=== PATIENT | male | born 1965 | race Two or more races ===

== ENCOUNTER 2018-08-01 14:08 | Emergency (ER) | payer OTHER ==
[~2018-08-01] VITALS: Ht 160 cm; Wt 93.0 kg
[2018-08-01] MEDS ORDERED: ASPirin 81 mg TAB PO ONE (15:00)
[2018-08-01 15:21] LABS: Albumin 4.1 g/dL (3.4-5.0); Anion Gap 4 (5-15); Blood Urea Nitrogen 20 mg/dL (7-18); Calcium 8.7 mg/dL (8.5-10.1); Carbon Dioxide 30 mmol/L (21-32); Chloride 107 mmol/L (98-107); Glucose 119 mg/dL (74-106); Potassium 4.1 mmol/L (3.5-5.1); Sodium 141 mmol/L (136-145)
[2018-08-01 15:25] LABS: Alanine Aminotransferase 63 U/L (16-61); Alkaline Phosphatase 120 U/L (45-117); Aspartate Aminotransferase 33 U/L (15-37); BUN/Creatinine Ratio 19.2; Bilirubin, Total 0.5 mg/dL (0.2-1.0); GFR African American 96 mL/min; GFR Non-African American 80 mL/min; Total Protein 7.4 g/dL (6.4-8.2)
[2018-08-01 15:29] LABS: Basophils # (auto) 0 uL; Basophils % (auto) 0.4 % (0.0-2.0); Eosinophils # (auto) 0.1 uL; Eosinophils % (auto) 0.8 % (0.0-7.0); Hematocrit 45.3 % (41.0-53.0); Hemoglobin 15.4 g/dL (13.5-17.5); Lymphocytes # (auto) 1.8 uL; Lymphocytes % (auto) 22.9 % (10.0-50.0); Mean Corpuscular Hemoglobin 30.6 pg (28.0-32.0); Mean Corpuscular Hgb Conc. 34.1 g/dL (32.0-36.0); Mean Corpuscular Volume 89.7 fL (80.0-100.0); Monocytes # (auto) 0.5 uL; Monocytes % (auto) 6.8 % (0.0-12.0); Neutrophils # (auto) 5.5 uL; Neutrophils % (auto) 69.1 % (37.0-80.0); Platelet Count (auto) 204 10^3/uL (140-450); Red Blood Cells 5.05 10^6/uL (4.5-5.90); Red Cell Distribution Width 15.1 % (11.8-14.3)
[2018-08-01 18:04] VITALS: BP 193/128
[2018-08-01] MEDS ORDERED: cloNIDine HCL 0.1 MG TAB PO ONE (18:15)
== END 2018-08-01 20:16 | disposition left against medical advice (07) ==
LOC: ER 14:11
DX: I24.9 Acute ischemic heart disease, unspecified (principal); E03.9 Hypothyroidism, unspecified; I10 Essential (primary) hypertension
CPT/HCPCS: 36415; 71046; 80053; 84443; 84484; 85025; 93005

== ENCOUNTER 2022-01-24 03:57 | Emergency (ER) | payer BC, OTHER ==
[~2022-01-24] VITALS: Ht 160 cm; Wt 81.0 kg
[2022-01-24 04:30] VITALS: BP 145/91
[2022-01-24 04:46] LABS: Basophils # (auto) 0 10 ^3/uL (0-0.2); Basophils % (auto) 0.6 % (0.0-2.0); Eosinophils # (auto) 0.1 10 ^3/uL (0-0.8); Eosinophils % (auto) 1.4 % (0.0-7.0); Hematocrit 43.3 % (41.0-53.0); Hemoglobin 14.3 g/dL (13.5-17.5); Lymphocytes # (auto) 2.1 10 ^3/uL (0.4-5.4); Lymphocytes % (auto) 27.1 % (10.0-50.0); Mean Corpuscular Hemoglobin 29.3 pg (28.0-32.0); Mean Corpuscular Volume 88.7 fL (80.0-100.0); Monocytes # (auto) 0.6 10 ^3/uL (0-1.3); Monocytes % (auto) 7.1 % (0.0-12.0); Neutrophils % (auto) 63.8 % (37.0-80.0); Red Blood Cells 4.88 10^6/uL (4.5-5.90); Red Cell Distribution Width 14.5 % (11.8-14.3); White Blood Cell 7.8 10^3/uL (4.4-10.8)
[2022-01-24 05:03] LABS: Albumin 3.9 g/dL (3.4-5.0); BUN/Creatinine Ratio 20.2; Calcium 8.3 mg/dL (8.5-10.1); Potassium 3.8 mmol/L (3.5-5.1)
[2022-01-24 05:06] LABS: Bilirubin, Total 0.4 mg/dL (0.2-1.0); Total Protein 6.9 g/dL (6.4-8.2)
[2022-01-24] MEDS ORDERED: TRAM-297 PO (10:51)
[2022-01-24] MEDS ORDERED: traMADol HCL 50 MG TAB PO ONE (11:00)
== END 2022-01-24 11:38 | disposition home or self-care (01) ==
LOC: ER 03:57
DX: R07.89 Other chest pain (principal); E03.9 Hypothyroidism, unspecified; Z90.89 Acquired absence of other organs
CPT/HCPCS: 36415; 71045; 80053; 84484; 85025; 93005

== ENCOUNTER 2023-12-27 15:22 | Emergency (ER) | payer BC ==
[~2023-12-27] VITALS: Ht 167.6 cm; Wt 82.5 kg
[~2023-12-27 15:22] MED LIST: TRAM-297 PO
[2023-12-27 16:41] VITALS: BP 140/90; PULSE 85; RESP 18; O2SAT 97
== END 2023-12-27 17:35 | disposition left against medical advice (07) ==
LOC: ER 15:30
DX: J02.9 Acute pharyngitis, unspecified (principal); Z53.21 Procedure and treatment not carried out due to patient leaving prior to being seen by health care provider

== ENCOUNTER 2025-01-30 06:25 | Emergency (ER) | payer BC ==
[~2025-01-30] VITALS: Ht 160 cm; Wt 81.7 kg
--- NOTE | 2025-01-30 06:51 | ED.PDOC ---
Back pain HPI HPI Comments This is a 59 year old male presenting to the ED with chief complaint of back pain. Patient reports that he has been experiencing left lower back pain with associated radiation down the back of his left leg for the past 2 days. Patient relays that he has history of sciatica and similar pain in the past due to a previous work related injury. Patient notes laying down improves pain, but sitting or moving worsens his pain. Patient denies any dysuria, flank pain, nausea, vomiting, abdominal pain, numbness, or weakness. Chief Complaint: Back Pain Time Seen by MD: 06:49 Primary Care Provider: NONE Reviewed Notes: Nurses Notes, Medications, Allergies Allergies: Coded Allergies: No Known Drug Allergy (Verified Allergy, Unknown, 08/01/18) Home Meds Active Scripts Hydrocodone-Acetaminophen (Hydrocodone Bitartrate/AC 5-325 mg) 1 Tab Tab, 1 TAB PO TID for 10 Days, #30 TAB Prov:DAYANARA KINGSTON MD 01/30/25 Cyclobenzaprine Hcl (Cyclobenzaprine Hcl) 10 Mg Tab, 10 MG PO TID for 30 Days, #90 TAB Prov:DAYANARA KINGSTON MD 01/30/25 Diclofenac Sodium (Diclofenac Sodium Dr) 50 Mg Tab, 50 MG PO TID for 30 Days, #90 TAB Prov:DAYANARA KINGSTON MD 01/30/25 Tramadol Hcl (Ultram) 50 Mg Tab, 1 TAB PO Q6HR, #30 TAB Prov:LIZET VERNON MD 01/24/22 Information Source: Patient Mode of Arrival: Ambulatory Timing: Days Duration: Since onset Location of Back pain: (L) Lower back Radiates to: Posterior: (L) Calf Severity: Moderate Prehospital treatment: None Quality: Sharp Onset: Spontaneous Circumstance: Work Related History of: Chronic Back Pain Modifying Factors: Movement Past Medical History PAST MEDICAL HISTORY: DM, HTN, Thyroid Surgical History: Thyroidectomy Family History Family History: Reviewed,noncontributory to illness, Unknown Social History Smoker: Non-Smoker Alcohol: Denies ETOH Use Drugs: Denies Drug Use Lives In: Home Constitutional: denies: chills, diaphoresis, fatigue, fever, malaise, sweats, weakness, others EENTM: denies: blurred vision, double vision, ear bleeding, ear discharge, ear drainage, ear pain, ear ringing, eye pain, eye redness, hearing loss, mouth pain, mouth swelling, nasal discharge, nose bleeding, nose congestion, nose silvina n, photophobia, tearing, throat pain, throat swelling, voice changes, others Respiratory: denies: cough, hemoptysis, orthopnea, SOB at rest, shortness of breath, SOB with excertion, stridor, wheezing, others Cardiovascular: denies: chest pain, dizzy spells, diaphoresis, Dyspnea on exertion, edema, irregular heart beat, left arm pain, lightheadedness, palpitations, PND, syncope, others Gastrointestinal: denies: abdomen distended, abdominal pain, blood streaked bowels, constipated, diarrhea, dysphagia, difficulty swallowing, hematemesis, melena, nausea, poor appetite, poor fluid intake, rectal bleeding, rectal pain, vomiting, others Genitourinary: denies: burning, dysuria, flank pain, frequency, hematuria, incontinence, penile discharge, penile sore, pain, testicle pain, testicle swelling, urgency, others Neurological: denies: dizziness, fainting, headache, left sided numbness, left sided weakness, numbness, paresthesia, pre-existing deficit, right sided numbness, right sided weakness, seizure, speech problems, tingling, tremors, weakness, others Musculoskeletal: reports: back pain; denies: gout, joint pain, joint swelling, muscle pain, muscle stiffness, neck pain, others Integumetry: denies: bruises, change in color, change in hair/nails, dryness, laceration, lesions, lumps, rash, wounds, others Allergic/Immunocompromised: denies: Difficulty Healing, Frequent Infections, Hives, Itching, others Hematologic/Lymphatic: denies: anemia, blood clots, easy bleeding, easy bruising, swollen glands, others Endocrine: denies: excessive hunger, excessive sweating, excessive thirst, excessive urination, flushing, intolerance to cold, intolerance to heat, unexplained weight gain, unexplained weight loss, others Psychiatric: denies: anxiety, bipolar disorder, depression, hopeless, panic disorder, schizophrenia, sleepless, suicidal, others All Other Systems: Reviewed and Negative Physical Exam General Appearance: Moderate Distress, Normal HEENT: Normal ENT Inspection, Pharynx Normal, TMs Normal Neck: Full Range of Motion, Non-Tender, Normal, Normal Inspection Respiratory: Chest Non-Tender, Lungs Clear, No Accessory Muscle Use, No Respiratory Distress, Normal Breath Sounds Cardiovascular: No Edema, No JVD, No Murmur, No Gallop, Normal Peripheral Pulses, Regular Rate/Rhythm Breast Exam: Deferred Gastrointestinal: No Organomegaly, Non Tender, No Pulsatile Mass, Normal Bowel Sounds, Soft Genitalia: Deferred Pelvic: Deferred Rectal: Deferred Extremities: No calf tenderness, Normal capillary refill, Normal inspection, Normal range of motion, Non-tender, No pedal edema Musculoskeletal : Location: Left Extremity Location: Back Apperance: Limited ROM, Tenderness: Moderate, Other (Radiculopathy to the left leg) Neurologic: Alert, spiral tube winder helper II-XII nml as Tested, No Motor Deficits, Normal Affect, Normal Mood, No Sensory Deficits Cerebellar Function: Normal Reflexes: Normal Skin: Dry, Normal Color, Warm Peripheral Pulses: 1+ carotid (R), 1+ carotid (L) Lymphatic: No Adenopathy Was a procedure done? Was a procedure done?: No Back Pain Differential Dx Differential Diagnosis: Musculoskeletal Pain Other Differential Diagnosis Sciatica X-Ray, Labs, Meds, VS Vital Signs Date Time Temp Pulse Resp B/P (MAP) Pulse Ox O2 Delivery O2 Flow Rate FiO2 01/30/25 10:12 97.3 78 18 158/94 (115) 95 97.3 01/30/25 10:12 94 158/94 01/30/25 08:55 75 16 149/111 (124) 100 01/30/25 08:48 70 168/102 01/30/25 08:11 70 20 96 Room Air* 0 21 01/30/25 07:55 97.5 70 18 168/102 (124) 96 97.5 01/30/25 07:54 69 19 168/102 01/30/25 07:16 78 18 152/98 01/30/25 06:27 97.9 75 15 169/105 98 97.9 Lab Test 01/30/25 09:11 Range/Units Urine Color Yellow Yellow Urine Clarity Clear Clear Urine pH 5.5 5.0-9.0 Urine Specific [place] 1.023 1.001-1.035 Urine Protein Trace H Negative Urine Ketones Trace Negative Urine Blood Negative Negative /uL Urine Nitrite Negative Negative Urine Bilirubin Negative Negative Urine Urobilinogen Normal Negative mg/dL Urine Leukocyte Esterase Negative Negative /uL Urine RBC 1 0 - 3 /hpf Urine Microscopic WBC 1 0-3 /HPF Urine Squamous Epithelial Cells None seen <5 /hpf Urine Bacteria None seen None Seen /hpf Urine Mucus Few None Seen Urine Glucose Normal Normal mg/dL Current Medications Medications (Trade) Dose Ordered Sig/Yrn Route Start Time Stop Time Status Last Admin Dexamethasone Sodium Phosphate (Decadron Injection) 6 mg ONCE ONCE IV 01/30/25 07:00 01/30/25 07:01 DC 01/30/25 07:16 Morphine Sulfate 3 mg ONCE ONCE IV 01/30/25 07:00 01/30/25 07:01 DC 01/30/25 07:16 Labetalol HCl (Labetalol HCl) 20 mg ONCE ONCE IV 01/30/25 08:15 01/30/25 08:16 DC 01/30/25 08:48 Ketorolac Tromethamine (Toradol Injection) 60 mg ONCE ONCE IM 01/30/25 09:00 01/30/25 09:01 DC 01/30/25 09:07 [place] [id number] Ph: [phone] DIAGNOSTIC IMAGING Diagnostic Imaging Report : [id number] Signed PATIENT: HARVINDER CLEMENTS ACCT: [id number] UNIT: [id number] : 1965 LOC: ER ROOM / BED: / AGE / SEX: 59 / M ADM STATUS: REG ER SERVICE [id number] ORDERING PHYSICIAN: DAYANARA KINGSTON MD PROCEDURE(s): LS2CT - LS SPINE WO CONTRAST REASON: radiculitis ORDER NUMBER(s): [id number], ACCESSION NUMBER(s): [id number] CLINICAL INFORMATION: Radiculitis. TECHNIQUE: Axial CT images of the lumbar spine were obtained without IV contrast. Coronal and sagittal reformatted images were obtained, reviewed, and stored. One or more of the following dose reduction techniques were used: Automated exposure control. Adjustment of mA and/or kV according to patient size. CTDIvol = 36.85 mGy DLP = 36.85 mGy-cm COMPARISON: None FINDINGS: Mild straightening of the normal lumbar lordosis. No significant spondylolisthesis. Vertebral body heights are maintained. Posterior elements are intact. No acute fracture. Paraspinal soft tissues are unremarkable. Lumbar disc levels: L1-L2: No significant disc/facet abnormality. No significant spinal canal or neural foraminal stenosis. L2-L3: Mild disc space narrowing and diffuse disc bulge mildly indenting the ventral aspect of the thecal sac. No significant spinal canal stenosis. Facet hypertrophy with [id number] bilateral neural foraminal stenoses. L3-L4: Diffuse disc bulge causing mild to moderate spinal canal stenosis and partial effacement of the lateral recesses. Facet hypertrophy with moderate bilateral neural foraminal stenoses. L4-L5: Diffuse disc bulge causing [id number] spinal canal stenosis and partial effacement of the lateral recesses. Facet hypertrophy and encroachment of the neural foramina by the disc bulge contributes to moderate to severe bilateral neural foraminal stenoses, left slightly greater than right. L5-S1: Moderate disc space narrowing. Vacuum disc disease also noted. Mild disc bulge without significant spinal canal stenosis. Facet hypertrophy with moderate to severe neural foraminal stenoses. IMPRESSION: 1. No evidence of acute fracture or spondylolisthesis. 2. Degenerative disc disease and facet disease in the lumbar spine with associated spinal canal, subarticular, and neural foraminal stenoses as detailed above. MRI may be helpful to better characterize if clinically indicated. ATED BY: ALEJO ALONSO DO DICTATED DATE/TIME: 01/30/25812 SIGNED BY: ALEJO ALONSO DO SIGNED DATE/TIME: 01/30/25812 CC: X-Ray, Labs, Meds, VS Comment Course in the emergency department patient came in to the ER complaining of severe back pain mostly on the left side with a radiculopathy patient have had an back injury many years ago and from time to time he has an exacerbation also his blood pressure is high at 69 169/105 patient has a history of hypertension diabetes and thyroid carcinoma taking tramadol for the pain The CT shows multilevel moderate to severe DJD Patient will be discharged home to follow up with an orthopedist or neurosurgeon Images Reviewed?: Images reviewed and evaluated by me Time of 1ST Reevaluation: 07:48 Reevaluation 1ST: Improved Time of 2ND Reevaluation: 10:37 Reevaluation 2ND: Improved Consultation: PCP, Surgery Patient Education/Counseling: Diagnosis, Treatment, Prognosis, Need For Follow Up Family Education/Counseling: Diagnosis, Treatment, Prognosis, Need For Follow Up, No Family Present SEPSIS Sepsis Screen Date sepsis recognized/suspect: Jan 30, 2025 Time Sepsis recognized/suspect: 630 Recent Procedure: No On Antibiotic Therapy: No Respiratory Rate >20: No Heart Rate >90: No Temp<36 C (96.8 F) or >38.3 C: No SBP <90 or MAP <65 mmHG: No New Acute Mental Status Change: No Is the patient on CPAP, BIPAP,: No Physician Orders Ls Spine Wo Contrast (01/30/25 06:48) Vital Signs Date Time Temp Pulse Resp B/P (MAP) Pulse Ox O2 Delivery O2 Flow Rate FiO2 01/30/25 10:12 97.3 78 18 158/94 (115) 95 97.3 01/30/25 10:12 94 158/94 01/30/25 08:55 75 16 149/111 (124) 100 01/30/25 08:48 70 168/102 01/30/25 08:11 70 20 96 Room Air* 0 21 01/30/25 07:55 97.5 70 18 168/102 (124) 96 97.5 01/30/25 07:54 69 19 168/102 01/30/25 07:16 78 18 152/98 01/30/25 06:27 97.9 75 15 169/105 98 97.9 Medications Medications Dose Ordered Sig/Yrn Route Start Time Stop Time Status Last Admin Dose Admin Dexamethasone Sodium Phosphate 6 mg ONCE ONCE IV 01/30/25 07:00 01/30/25 07:01 DC 01/30/25 07:16 Ketorolac Tromethamine 60 mg ONCE ONCE IM 01/30/25 09:00 01/30/25 09:01 DC 01/30/25 09:07 Labetalol HCl 20 mg ONCE ONCE IV 01/30/25 08:15 01/30/25 08:16 DC 01/30/25 08:48 Morphine Sulfate 3 mg ONCE ONCE IV 01/30/25 07:00 01/30/25 07:01 DC 01/30/25 07:16 Departure 1 Departure Time of Disposition: 10:37 Impression: Primary Impression: Spinal stenosis of lumbar region with radiculopathy Disposition: 01 HOME / SELF CARE / HOMELESS Condition: Fair Additional Instructions: Local heat bedrest and follow up with your orthopedist your PCP e-Prescriptions Hydrocodone-Acetaminophen (Hydrocodone Bitartrate/AC 5-325 mg) 1 Tab Tab 1 TAB PO TID for 10 Days, #30 TAB Prov: DAYANARA KINGSTON MD 01/30/25 Cyclobenzaprine Hcl (Cyclobenzaprine Hcl) 10 Mg Tab 10 MG PO TID for 30 Days, #90 TAB Prov: DAYANARA KINGSTON MD 01/30/25 Diclofenac Sodium (Diclofenac Sodium Dr) 50 Mg Tab 50 MG PO TID for 30 Days, #90 TAB Prov: DAYANARA KINGSTON MD 01/30/25 Discharged With: Self Critical Care Note Critical Care Time?: No Stability Stability form required: No Comments Patient need three days off work Heart Score Heart Score: Heart Score Response (Comments) Value History N/A 0 EKG N/A 0 Age 45-64 1 Risk Factors No known risk factors 0 Troponin N/A 0 Total 1 I personally scribed for DAYANARA KINGSTON MD ([email or web address]) on 01/30/25 at 06:51. Electronically submitted by Eamon Yeager ([email or web address]). I personally scribed for DAYANARA KINGSTON MD ([email or web address]) on 01/30/25 at 09:58. Electronically submitted by Eamon Yeager ([email or web address]). DAYANARA KINGSTON MD Jan 30, 2025 06:51
[2025-01-30] MEDS: MORPHINE SULFATE 4 MG/ML SYR/VIAL IV ONE (07:16)
[2025-01-30 08:11] VITALS: PULSE 70; RESP 20; O2SAT 96
--- NOTE | 2025-01-30 08:16 | DVH ---
CLINICAL INFORMATION: Radiculitis. TECHNIQUE: Axial CT images of the lumbar spine were obtained without IV contrast. Coronal and sagitt al reformatted images were obtained, reviewed, and stored. One or more of the following dose reducti on techniques were used: Automated exposure control. Adjustment of mA and/or kV according to patient size. CTDIvol = 36.85 mGy DLP = 36.85 mGy-cm COMPARISON: None FINDINGS: Mild straightening of the normal lumbar lordosis. No significant spondylolisthesis. Vertebral body he ights are maintained. Posterior elements are intact. No acute fracture. Paraspinal soft tissues are unremarkable. Lumbar disc levels: L1-L2: No significant disc/facet abnormality. No significant spinal canal or neural foraminal stenosi s. L2-L3: Mild disc space narrowing and diffuse disc bulge mildly indenting the ventral aspect of the th ecal sac. No significant spinal canal stenosis. Facet hypertrophy with [id number] bilateral leroy ral foraminal stenoses. L3-L4: Diffuse disc bulge causing mild to moderate spinal canal stenosis and partial effacement of th e lateral recesses. Facet hypertrophy with moderate bilateral neural foraminal stenoses. L4-L5: Diffuse disc bulge causing [id number] spinal canal stenosis and partial effacement of th e lateral recesses. Facet hypertrophy and encroachment of the neural foramina by the disc bulge contr ibutes to moderate to severe bilateral neural foraminal stenoses, left slightly greater than right. L5-S1: Moderate disc space narrowing. Vacuum disc disease also noted. Mild disc bulge without signif icant spinal canal stenosis. Facet hypertrophy with moderate to severe neural foraminal stenoses. IMPRESSION: 1. No evidence of acute fracture or spondylolisthesis. 2. Degenerative disc disease and facet disease in the lumbar spine with associated spinal canal, suba rticular, and neural foraminal stenoses as detailed above. MRI may be helpful to better characterize if clinically indicated.
[2025-01-30] MEDS: LABETALOL HCL 20 MG/4 ML VL IV ONE ×2 (08:48)
[2025-01-30] MEDS: KETOROLAC TROMETH 60MG/2ML VIAL IM ONE (09:07)
[2025-01-30 10:12] VITALS: BP 158/94; PULSE 78; RESP 18; TEMP 97.3; O2SAT 95
[2025-01-30 10:26] LABS: Urine Protein, UAD TRACE (Negative)
[2025-01-30] MEDS ORDERED: DICL50TA5 PO (10:41)
[2025-01-30] MEDS ORDERED: CYCL-839 PO (10:41)
[2025-01-30] MEDS ORDERED: HYDR-4902 PO (10:41)
== END 2025-01-30 10:57 | disposition home or self-care (01) ==
LOC: ER 06:35
DX: M48.061 Spinal stenosis, lumbar region without neurogenic claudication (principal); E11.9 Type 2 diabetes mellitus without complications; I10 Essential (primary) hypertension; Z90.89 Acquired absence of other organs
CPT/HCPCS: 72131; 81001; 96372; 96374; 96375; 99285; J1100; J1885; J2270